=== PATIENT | female | born 1990 | race Caucasian/White ===

== ENCOUNTER → 2017-05-12 | Outpatient (CLI) | payer OTHER | LOC: ULTRA 09:17 | DX: E04.1 Nontoxic single thyroid nodule (principal) ==

== ENCOUNTER → 2017-05-22 | Outpatient (CLI) | payer OTHER ==
--- NOTE | ~2017-05-22 | CNG ---
[facility] [place] [address] CYTO-NONGYN REPORT PROCEDURE Name: JOSE COKER Room #: REG [facility] M..#: [id number] Admission: 05/22/17 Date of : 89 Discharge: Report #: [id number] Path Case #: [id number] CYTOPATHOLOGY REPORT COLLECTION DATE: 05/22/2017 RECEIVED DATE: 05/22/2017 SUBMITTING PHYS: Dr. Julio C Dominique OTHER PHYS: CLINICAL HISTORY: Left thyroid mass. SPECIMEN(S) RECEIVED: A.US guided Fine needle aspiration, Left thyroid mass * * * * * * * * * * * * FINAL DIAGNOSIS: A. US guided Fine needle aspiration, Left thyroid mass: BETHESDA CATEGORY II. SPECIMEN CONSISTS OF SCANT FOLLICULAR CELLS, HURTHLE CELLS, MACROPHAGES, ABUNDANT COLLOID, AND BLOOD, FAVOR A CYSTIC ADENOMATOID NODULE. - Specimen is barely adequate due to scant follicular cells (please see comment). COMMENT: Examination shows watery colloid with rare groups of thyroid follicular cells and blood. The specimen is barely adequate with four to five groups of thyroid follicular cells present collectively on all of the smears as well as the Thin Prep smear prepared. In addition to the thyroid follicular cells, there are a few Hurthle cells as well as numerous macrophages. Findings are suggestive of a cystic adenomatoid nodule; however, due to scant cellularity a partially sampled cystic follicular neoplasm cannot be excluded. A vial is retained for possible molecular studies if required. 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 Correlate clinically and follow-up as indicated. [place]: Dr. Satish Hoffman. PATHOLOGIST: Luz Vegas M.D. REPORT ELECTRONICALLY SIGNED BY: Luz Vegas M.D. DATE/TIME: 05/24/2017 14:45 * * * * * * * * * * * * GROSS PATHOLOGY: A. US guided Fine needle aspiration, Left thyroid mass: The specimen is labeled "Jose Coker" and consists of three fixed slides, three air dried slides. Twenty mL of clear fluid in fixative from the needle rinse is also submitted and one ThinPrep slide and a cell block were prepared from this material. (clt 05.22.2017) Also received is the RNARetain vial which will be held for molecular [address] [address] CYTO-NONGYN REPORT PROCEDURE Name: JOSE COKER Room #: REG [facility].#: [id number] Admission: 05/22/17 Date of : 89 Discharge: Report #: [id number] Path Case #: [id number] studies if needed. BANK SECRECY ACT OFFICER(S): MAURY Hughes([facility] INITIAL CPT CODE(S): A; 51430, 18820 Professional services performed by [facility] at [address], [place] [address] Technical services performed by [facility] at [address] [place] [address]., [address], [place] [address]. [facility] [address] [place] [address], [address] [place] [address] PHONE: [phone] DIRECTOR: Miah Flores M.D. * * * END OF REPORT * * *
== END | disposition home or self-care (01) ==
LOC: ULTRA 09:37
DX: D34 Benign neoplasm of thyroid gland (principal)